=== PATIENT | male | born 1955 ===

== ENCOUNTER 2016-12-28 14:43 | Emergency (ER) | payer BC, OTHER ==
[2016-12-28 14:49] VITALS: O2SAT 97
[2016-12-28 15:53] LABS: BASO # 0.1 K/uL (0.0-0.2); BASO % 0.9 % (0.0-2.0); EOS # 0.2 K/uL (0.0-0.7); EOS % 2.4 % (0.0-4.0); HEMATOCRIT 40.6 % (35.0-51.0); LYMPH # 2.7 K/uL (1.0-4.3); LYMPH % 36.5 % (20.0-40.0); MEAN CELL VOLUME 82.7 fL (80.0-94.0); MEAN CORPUSCULAR HEMOGLOBIN 27.9 pg (27.0-31.0); MEAN CORPUSCULAR HGB CONC 33.7 g/dL (33.0-37.0); MEAN PLATELET VOLUME 8.6 fL (7.2-11.7); MONO # 0.4 K/uL (0.0-0.8); MONO % 5.6 % (0.0-10.0); RED CELL DISTRIBUTION WIDTH 13.6 % (11.5-14.5); WHITE BLOOD COUNT 7.3 K/uL (4.8-10.8)
[2016-12-28 15:57] LABS: CHLORIDE 97 mmol/L (98-107); SODIUM 139 mmol/L (132-148)
[2016-12-28 15:58] LABS: POTASSIUM 4.2 mmol/L (3.6-5.2)
[2016-12-28 15:59] LABS: GFR AFRICAN-AMERICAN > 60
--- NOTE | 2016-12-28 15:59 | RAD ---
PROCEDURE: Left Knee Radiographs. HISTORY: Pain. COMPARISON: None. FINDINGS: BONES: Normal. No fracture. No osseous erosion or periosteal reaction appreciated. JOINTS: Normal. No osteoarthritis. JOINT EFFUSION: None. OTHER FINDINGS: None. IMPRESSION: Normal radiographs of the left knee.
[2016-12-28 16:00] LABS: ALB/GLOB RATIO 1.7 (1.0-2.1); ALKALINE PHOSPHATASE 68 U/L (38-126); ALT/SGPT 27 U/L (21-72); AST/SGOT 28 U/L (17-59); BILIRUBIN,TOTAL 0.3 mg/dL (0.2-1.3); BLOOD UREA NITROGEN 19 mg/dL (9-20); CALCIUM 9.1 mg/dl (8.6-10.4); CARBON DIOXIDE 27 mmol/L (22-30); GLUCOSE,RANDOM 232 mg/dL (75-110); TOTAL PROTEIN 6.9 g/dL (6.3-8.3)
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
[2016-12-28 17:41] VITALS: BP 116/71; PULSE 64; RESP 20; TEMP 98
== END 2016-12-28 17:47 | disposition home or self-care (01) ==
LOC: C.ER 14:43
DX: S81.001D Unspecified open wound, right knee, subsequent encounter (principal); V03.10XD Pedestrian on foot injured in collision with car, pick-up truck or van in traffic accident, subsequent encounter